=== PATIENT | male | born 1950 | race Caucasian/White ===

== ENCOUNTER → 2018-06-16 | Outpatient (CLI) | payer OTHER ==
[~2018-06-16] MED LIST: REGADENOSON 0.4 MG/5 ML PF SYG IVP SCH
== END | disposition home or self-care (01) ==
LOC: SHCH 09:11
PROVIDERS: ATTEND Internal Medicine Cardiovascular Disease
DX: I99.8 Other disorder of circulatory system (principal); I25.10 Atherosclerotic heart disease of native coronary artery without angina pectoris
CPT/HCPCS: 78452; 93017; 96374; A9500 ×2; J2785

== ENCOUNTER → 2018-06-19 | Outpatient (CLI) | payer OTHER | END | disposition home or self-care (01) | LOC: EDBD → SHCH 10:59 → EDUNIT# 11:00 | PROVIDERS: ATTEND Internal Medicine Cardiovascular Disease | DX: I10 Essential (primary) hypertension (principal) | CPT/HCPCS: 93306 ==

== ENCOUNTER 2023-03-19 08:26 | Day surgery (SDC) | payer OTHER ==
[~2023-03-19] VITALS: Ht 172.7 cm; Wt 86.2 kg
[2023-03-19] MEDS ORDERED: 0.9%NACL 1000ML 1,000 ML IV ONE (09:33)
[2023-03-19] MEDS ORDERED: ISOS30TA92 PO (10:18)
[2023-03-19] MEDS ORDERED: METF-445 PO (10:18)
[2023-03-19] MEDS ORDERED: CLOP-31 PO (10:18)
[2023-03-19] MEDS ORDERED: CYAN-52 PO (10:18)
[2023-03-19] MEDS ORDERED: ATOR-2 PO (10:18)
[2023-03-19] MEDS ORDERED: INSLAN SQ (10:18)
[2023-03-19] MEDS ORDERED: LISI10TA24 PO (10:18)
[2023-03-19] MEDS ORDERED: EMPA25TA PO (10:18)
[2023-03-19] MEDS ORDERED: PROPOFOL 10 MG/ML 20ML VIAL IV ONE (11:15)
[2023-03-19] MEDS ORDERED: GLYCOPYRROLATE 1 MG/5 ML SYRINGE ONE (11:46)
[2023-03-19 12:00] VITALS: BP 131/59; PULSE 63; RESP 16
[2023-03-19 12:05] VITALS: BP 122/58; PULSE 64; RESP 15
[2023-03-19 12:10] VITALS: BP 119/58; PULSE 64; RESP 16
[2023-03-19 12:15] VITALS: BP 132/46; PULSE 65; RESP 15
[2023-03-19 12:30] VITALS: BP 135/58; PULSE 66; RESP 16
== END 2023-03-19 12:30 | disposition home or self-care (01) ==
LOC: DAH 08:26 → ENDO 08:26
PROVIDERS: ATTEND Internal Medicine Gastroenterology
DX: Z12.11 Encounter for screening for malignant neoplasm of colon (principal); Z20.822 Contact with and (suspected) exposure to COVID-19; D12.3 Benign neoplasm of transverse colon; K64.1 Second degree hemorrhoids; K57.30 Diverticulosis of large intestine without perforation or abscess without bleeding; K29.50 Unspecified chronic gastritis without bleeding; K31.7 Polyp of stomach and duodenum; K21.00 Gastro-esophageal reflux disease with esophagitis, without bleeding; I10 Essential (primary) hypertension; E11.9 Type 2 diabetes mellitus without complications; E78.5 Hyperlipidemia, unspecified; M19.90 Unspecified osteoarthritis, unspecified site; I25.119 Atherosclerotic heart disease of native coronary artery with unspecified angina pectoris; Z86.010 Personal history of colon polyps; Z87.891 Personal history of nicotine dependence; Z98.890 Other specified postprocedural states; Z95.5 Presence of coronary angioplasty implant and graft; Z72.89 Other problems related to lifestyle; Z79.02 Long term (current) use of antithrombotics/antiplatelets; Z79.899 Other long term (current) drug therapy; Z79.01 Long term (current) use of anticoagulants
CPT/HCPCS: 82948; 88305; 88342; 87635; 43239; 45385; 93005; J3490; J7030 ×2; J2704; A4620; A4215; A4223; A4657 ×2; A7002; A4222; A4221; A4663; A4606

== ENCOUNTER → 2024-02-04 | Outpatient (CLI) | payer OTHER ==
[~2024-02-04] MED LIST changes: +ATOR-2 PO; +CLOP-31 PO; +CYAN-52 PO; +EMPA25TA PO; +INSLAN SQ; +ISOS30TA92 PO; +LISI10TA24 PO; +METF-445 PO; -REGADENOSON 0.4 MG/5 ML PF SYG IVP SCH
== END | disposition home or self-care (01) ==
LOC: SHCH 13:02
PROVIDERS: ATTEND Internal Medicine Cardiovascular Disease
DX: I08.0 Rheumatic disorders of both mitral and aortic valves (principal); I70.203 Unspecified atherosclerosis of native arteries of extremities, bilateral legs; I87.2 Venous insufficiency (chronic) (peripheral); I20.0 Unstable angina; E11.9 Type 2 diabetes mellitus without complications; E78.5 Hyperlipidemia, unspecified; I10 Essential (primary) hypertension
CPT/HCPCS: 93306; 93925; 93970

== ENCOUNTER 2024-02-19 05:34 | Day surgery (SDC) | payer OTHER ==
[2024-02-14 09:51] LABS: BASOPHILS # (AUTO) 0.05 K/uL (0.00-0.20); BASOPHILS % (AUTO) 0.7 % (0.0-5.0); EOSINOPHILS # (AUTO) 0.14 K/uL (0.00-0.70); HEMATOCRIT 45.2 % (42-54); IMMATURE GRANULOCYTE ABSOLUTE 0.02 K/uL (0-1); LYMPHOCYTES # (AUTO) 1.4 K/uL (1.0-4.8); LYMPHOCYTES % (AUTO) 20.1 % (21.0-51.0); MEAN CORPUSCULAR HEMOGLOBIN 29.1 pg (27.0-33.0); MEAN CORPUSCULAR HGB CONC 32.1 g/dL (32.0-36.0); MEAN CORPUSCULAR VOLUME 90.6 fL (79-99); MONOCYTES # (AUTO) 0.4 K/uL (0.1-1.0); MONOCYTES % (AUTO) 5.8 % (3.0-13.0); NEUTROPHILS # (AUTO) 4.9 K/uL (1.8-7.7); NEUTROPHILS % (AUTO) 71.1 % (40.0-77.0); PLATELET COUNT (AUTO) 159 K/uL (130-400); RED BLOOD CELL COUNT(AUTO) 4.99 MIL/uL (4.50-6.20); RED CELL DISTRIBUTION WIDTH 13.6 % (11.0-15.5); WHITE BLOOD COUNT (AUTO) 6.9 K/uL (4.8-10.8)
[2024-02-14 09:55] VITALS: BP 114/62; PULSE 64; RESP 18
[2024-02-14 10:07] LABS: INR <= 0.93 (0.85-1.15); PROTHROMBIN TIME 10.8 SEC (9.6-11.6)
[2024-02-14 10:08] LABS: CREATININE 1.1 mg/dL (0.5-1.3); PARTIAL THROMBOPLASTIN TIME 25.3 SEC (26.3-35.5); POTASSIUM 4.6 mmol/L (3.5-5.1)
[~2024-02-19] VITALS: Ht 172.7 cm; Wt 85.5 kg
[2024-02-19] VITALS (12 sets, daily range): BP systolic 100–118; BP diastolic 46–62; PULSE 56–66; RESP 14–18
[~2024-02-19 05:34] MED LIST changes: +ASPI-1197 PO; -ATOR-2 PO; +CARB15DR81 OU; +GABA600T10 PO; +PANT40TA54 PO; +ROSU40TA70 PO; +SEMA1PEN3 SQ; +VITAMIN E PO
[2024-02-19] MEDS: 0.9%NACL 1000ML 1,000 ML IV ONE (06:58)
[2024-02-19] MEDS ORDERED: HEPARIN 10,000 UNIT/10ML (1,000 UNIT/ML) VIAL ONE (07:14)
[2024-02-19] MEDS ORDERED: BIVALIRUDIN 250 MG/VIAL IV ONE (07:14)
[2024-02-19] MEDS ORDERED: LIDOCAINE HCL 400MG/20ML VIAL ONE (07:14)
[2024-02-19] MEDS ORDERED: IOHEXOL 350 MG/ML 100ML INFUS..BTL IV ONE (07:14)
[2024-02-19] MEDS ORDERED: NITROGLYCERIN 50MG VIAL ONE (07:27)
[2024-02-19] MEDS ORDERED: MIDAZOLAM HCL 1 MG/ML 2ML VIAL ONE (07:32)
[2024-02-19] MEDS ORDERED: FENTANYL CITRATE PF 50 MCG/1 ML 2ML VIAL ONE (07:32)
[2024-02-19] MEDS ORDERED: IOHEXOL-350 50ML VIAL IV ONE (07:52)
[2024-02-19] MEDS ORDERED: 0.9%NACL 1000ML 1,000 ML IV SCH (08:30)
[2024-02-19] MEDS ORDERED: GLUCAGON 1MG KIT 1 MG ML IM PRN (08:30)
[2024-02-19] MEDS ORDERED: DEXTROSE 50%-WATER 50 ML DISP.SYRIN IV PRN (08:30)
[2024-02-19] MEDS ORDERED: INSULIN HUMULIN R 100 UNIT/ML 3ML SQ SCH (11:30)
== END 2024-02-19 12:35 | disposition home or self-care (01) ==
LOC: DAH 05:34
PROVIDERS: ATTEND Internal Medicine Cardiovascular Disease
DX: I25.110 Atherosclerotic heart disease of native coronary artery with unstable angina pectoris (principal); I25.82 Chronic total occlusion of coronary artery; R94.31 Abnormal electrocardiogram [ECG] [EKG]; I25.2 Old myocardial infarction; I44.0 Atrioventricular block, first degree; E11.51 Type 2 diabetes mellitus with diabetic peripheral angiopathy without gangrene; I11.0 Hypertensive heart disease with heart failure; I50.32 Chronic diastolic (congestive) heart failure; E78.5 Hyperlipidemia, unspecified; E66.3 Overweight; Z87.891 Personal history of nicotine dependence; Z68.28 Body mass index [BMI] 28.0-28.9, adult; Z82.49 Family history of ischemic heart disease and other diseases of the circulatory system
CPT/HCPCS: 80048; 85025; 85610; 85730; 36415; 71045; 93005; 93458; 82948 ×2; Q9965; C1894 ×2; J3010; J3490 ×2; J7030; J2250; J1644; Q9967 ×2; A4215; A4222; A4221; A4663; A4216; A4606; A4223 ×3; 96360; 96361; 99156; 99157; J0583

== ENCOUNTER → 2024-07-24 | Outpatient (CLI) | payer OTHER ==
[~2024-07-24] MED LIST changes: -CARB15DR81 OU; +GABA-1405 PO; -GABA600T10 PO; -ROSU40TA70 PO; +ROSU40TA88 PO; -VITAMIN E PO; +[UNRECOGNIZED DRUG - CODE] OU
== END | disposition home or self-care (01) ==
LOC: SHCH 13:01
PROVIDERS: ATTEND Internal Medicine Cardiovascular Disease
DX: I47.20 Ventricular tachycardia, unspecified (principal); I11.9 Hypertensive heart disease without heart failure; I25.10 Atherosclerotic heart disease of native coronary artery without angina pectoris; I73.9 Peripheral vascular disease, unspecified; Z95.1 Presence of aortocoronary bypass graft; I25.5 Ischemic cardiomyopathy
CPT/HCPCS: 93306

== ENCOUNTER 2025-03-31 05:32 | Day surgery (SDC) | payer OTHER ==
[2025-03-29 09:34] VITALS: BP 142/62; PULSE 45; RESP 18; TEMP 97.2
[2025-03-29 09:47] LABS: IMMATURE GRANULOCYTE ABSOLUTE 0.05 K/uL (0-1); NUCLEATED RED BLOOD CELLS 0.0 % (0.0-0.19); PLATELET COUNT (AUTO) 171 K/uL (130-400); RED BLOOD CELL COUNT(AUTO) 5.28 MIL/uL (4.50-6.20); RED CELL DISTRIBUTION WIDTH 16.1 % (11.0-15.5); WHITE BLOOD COUNT (AUTO) 6.5 K/uL (4.8-10.8)
[2025-03-29 09:52] LABS: CREATININE 1.5 mg/dL (0.5-1.3); GLOMERULAR FILTR. RATE CALC 49.0 mL/min (>90); GLUCOSE,RANDOM 251.0 mg/dL (70-105); SODIUM SERUM 139.0 mmol/L (136-145); UREA NITROGEN, BLOOD 29.0 mg/dL (7-18)
[2025-03-29 09:55] LABS: INR 1.02 (0.85-1.15)
--- NOTE | 2025-03-29 10:56 | EKG ---
[facility] Test Date: 2025-03-29 Test Time: 09:26:41 Pat Name: SHIREEN MORRIS Department: [facility] Room: [facility] Gender: M [employer]iter: [id number] : 1950 Requested By: VANNESSA MCNEIL Order Number: [id number] Reading MD: Cindy Mcfarland Measurements Intervals [place] Rate: 46 P: 17 IL: 284 QRS: -39 QRSD: 124 T: 127 QT: 553 QTc: 484 Interpretive Statements Sinus bradycardia with first degree AV block Nonspecific IVCD with LAD Inferior infarct, old Consider anterior infarct Nonspecific T abnormalities, lateral leads Compared to ECG 03/23/2024 08:53:47 First degree AV block now present Intraventricular conduction delay now present Myocardial infarct finding now present T-wave abnormality now present Sinus rhythm no longer present Left bundle-branch block no longer present Electronically Signed On 03-31-2025 14:26:12 CDT by Cindy Mcfarland Please click the below link to view image of tracing.
[~2025-03-31] VITALS: Ht 172.7 cm; Wt 87.1 kg
[2025-03-31] VITALS (10 sets, daily range): BP systolic 115–136; BP diastolic 51–72; PULSE 44–67; RESP 11–16; TEMP 97.3–97.4
[~2025-03-31 05:32] MED LIST changes: +ATOR40TA69 PO; +CHOL100034 PO; +FURO20TA4 PO; -ISOS30TA92 PO; -LISI10TA24 PO; -METF-445 PO; +METF-446 PO; +METO-408 PO; +RED600TA PO; -ROSU40TA88 PO; +SACU1TAB7 PO; -SEMA1PEN3 SQ; +SPIR25TA6 PO; +ZINC220T4 PO; -[UNRECOGNIZED DRUG - CODE] OU
[2025-03-31] MEDS ORDERED: LIDOCAINE HCL 1% MDV 50ML VIAL ONE (07:11)
[2025-03-31] MEDS ORDERED: MIDAZOLAM HCL 1 MG/ML 2ML VIAL ONE ×2 (07:28→07:48)
[2025-03-31] MEDS ORDERED: SODIUM BICARB 50MEQ 50ML VIAL 50 ML ONE (07:32)
[2025-03-31] MEDS ORDERED: IODIXANOL 320 MG/ML 100 ML VIAL ONE (07:56)
[2025-03-31] MEDS ORDERED: TRAM50TA4 PO (09:24)
--- NOTE | 2025-03-31 12:00 | NUR ---
CHEST XRAY SEEN BY DR MCNEIL, STATES "LOOKS GREAT", PT OKAY TO BE DISCHARGED.
== END 2025-03-31 12:40 | disposition home or self-care (01) ==
LOC: DAH 05:32
PROVIDERS: ATTEND Internal Medicine Cardiovascular Disease
DX: I11.0 Hypertensive heart disease with heart failure (principal); I50.22 Chronic systolic (congestive) heart failure; R00.1 Bradycardia, unspecified; I25.5 Ischemic cardiomyopathy; I34.0 Nonrheumatic mitral (valve) insufficiency; I73.9 Peripheral vascular disease, unspecified; I25.2 Old myocardial infarction; I44.0 Atrioventricular block, first degree; I25.110 Atherosclerotic heart disease of native coronary artery with unstable angina pectoris; Z95.1 Presence of aortocoronary bypass graft; Z79.899 Other long term (current) drug therapy; Z79.82 Long term (current) use of aspirin; Z98.890 Other specified postprocedural states
CPT/HCPCS: 80048; 85025; 85610; 85730; 36415; 93005; 33249; 99156; 99157 ×5; 82948; 71045; C1721; C1896; C1895; J3010; J0690; J0665; J3490 ×2; J2250 ×2; Q9967; A4615; A4215; A4222; A4221; A4663; A4216; A4606; A4223 ×3